=== PATIENT | male | born 1990 | race Caucasian/White ===

== ENCOUNTER 2024-11-05 00:19 | Emergency (ER) | payer SELFPAY ==
[2024-11-05] MEDS: Bacitracin Oint 1 GM U/D Packet TOP ONE (00:52)
[2024-11-05] MEDS: Acetaminophen/HYDROcodone 325-10 MG Tab PO STA (01:01)
[2024-11-05] MEDS: Diphtheria,Pertussis(Acell),Tetanus Vaccine 0.5 ML Syringe IM ONE (01:12)
[2024-11-05] MEDS: Amoxicillin/Clavulanate K 875-125 MG Tab PO ONE (01:12)
== END 2024-11-05 01:26 | disposition home or self-care (01) ==
LOC: MW.ED 00:19
DX: S61.251A Open bite of left index finger without damage to nail, initial encounter (principal); Z23 Encounter for immunization; Y04.1XXA Assault by human bite, initial encounter
CPT/HCPCS: 90471; 90715; 99283; A9270; 99282